=== PATIENT | female | born 1950 | race Caucasian/White ===

== ENCOUNTER → 2021-06-14 | Emergency (ER) | payer OTHER | END | disposition left against medical advice (07) | LOC: CANPREER → ER1 11:36 | DX: Z53.21 Procedure and treatment not carried out due to patient leaving prior to being seen by health care provider (principal) | CPT/HCPCS: 81001 ==

== ENCOUNTER → 2021-06-14 | Outpatient (CLI) | payer OTHER ==
[2021-06-14 13:43] LABS: HEMOGLOBIN 7.5 gm/dl (12.3-15.3); RED BLOOD COUNT 2.98 M/UL (4.00-5.10); WHITE BLOOD COUNT 5.8 K/UL (4.5-11.0)
[2021-06-14 14:11] LABS: BUN/CREATININE RATIO 23 (0-10)
== END ==
LOC: LAB 13:21
PROVIDERS: Internal Medicine Medical Oncology
DX: Z79.899 Other long term (current) drug therapy (principal)
CPT/HCPCS: 36415; 80053; 85025